=== PATIENT | male | born 1935 | race Caucasian/White ===

== ENCOUNTER 2021-08-08 14:48 | Inpatient (IN) | payer OTHER, MEDICARE, BC ==
[2021-08-08 16:00] LABS: #Eosinphils 0.1 thou/uL (0.0-0.7); #Lymphocytes 0.5 thou/uL (1.20-3.40); #Monocytes 0.6 thou/uL (0.11-0.59); #Neutrophils 7.1 thou/uL (1.40-6.50); %Eosinophils 0.7 % (0.0-10.0); %Lymphocytes 6.3 % (21.0-51.0); Hemoglobin 12.7 g/dL (14.0-18.0); Mean Corpuscular HGB CONC 34.2 g/dL (32.0-36.0); Mean Corpuscular Hemoglobin 40.9 pg (27.0-31.0); Mean Platelet Volume 6.4 fL (7.4-10.4); Platelet Count 501 thou/uL (130-400); RBC Distribution Width 13.4 % (11.5-14.5); White Blood Cell (WBC) Count 8.2 thou/uL (4.8-10.8)
[2021-08-08] MEDS ORDERED: Ondansetron PF 4 MG/2 ML Vial ONE (16:04)
[2021-08-08] MEDS ORDERED: Morphine 4 MG/ML VIAL ONE (16:04)
[2021-08-08 16:15] LABS: PTT 33.6 sec (22.9-36.1); Prothrombin Time 13.6 sec (12.0-14.7)
[2021-08-08 16:24] LABS: MDiff Complete? YES; Macrocytosis MODERATE=16-30 cells (100X) (0-5/hpf); Platelet Morphology Comment Appears Increased; Polychromasia SLIGHT = 2-3 cells (100X) (0-2/hpf); Stomatocytes SLIGHT = 2-5 cells (100X) (0-1/hpf)
[2021-08-08 16:30] LABS: ALT (SGPT) 16 U/L (8-55); AST (SGOT) 22 U/L (5-34); Albumin 4.2 g/dL (3.4-4.8); Alkaline Phosphatase 69 U/L (40-110); Anion Gap 16 mmol/L (10-20); BUN (Urea Nitrogen) 15 mg/dL (8.4-25.7); Calc. Creatinine Clearance 0 mL/min (70-130); Calcium 9.7 mg/dL (7.8-10.44); Carbon Dioxide 23 mmol/L (23-31); Chloride 96 mmol/L (98-107); Globulin 2.9 g/dL (2.4-3.5); Glucose 155 mg/dL (83-110); Potassium 4.1 mmol/L (3.5-5.1); Protein, Total 7.1 g/dL (5.8-8.1); Sodium 131 mmol/L (136-145)
[2021-08-08 18:41] VITALS: BMI 22.4
[2021-08-08] MEDS ORDERED: Cyclobenzaprine 10 MG TAB PO PRN (19:39)
[2021-08-08] MEDS ORDERED: traMADol HCl 50 MG TAB PO PRN (19:39)
[2021-08-08] MEDS ORDERED: Ondansetron PF 4 MG/2 ML Vial IVP PRN (19:44)
[2021-08-08] MEDS ORDERED: Promethazine HCl 25 MG/ML VIAL IM PRN (19:44)
[2021-08-08] MEDS ORDERED: Morphine 2 MG/ML VIAL SLOW IVP PRN (19:44)
[2021-08-08] MEDS ORDERED: hydrALAZINE 20 MG/ML VIAL SLOW IVP PRN (19:44)
[2021-08-08] MEDS ORDERED: Sodium Chloride 0.9% 500 ML IV SCH (19:45)
[2021-08-08] MEDS ORDERED: Ketorolac Tromethamine 30 MG/ML VIAL IVP SCH (19:45)
[2021-08-08] MEDS ORDERED: CEFAZOLIN 2 GM in Sodium Chloride 0.9% 100 ML IVPB SCH (19:45)
[2021-08-08] MEDS: Sodium Chloride 0.9% 1,000 ML IV SCH (20:49)
[2021-08-08] MEDS: Senokot S 8.6-50 MG TAB PO SCH (21:00)
[2021-08-08] MEDS ORDERED: Metoprolol Tartrate 25 MG TAB PO SCH (21:00)
[2021-08-08] MEDS ORDERED: Famotidine 20 MG TAB PO SCH (22:00)
[2021-08-08] MEDS: Acetaminophen 500 MG TAB PO SCH (23:32)
[2021-08-08] MEDS: traMADol HCl 50 MG TAB PO SCH (23:32)
[2021-08-08] MEDS: Ketorolac Tromethamine 30 MG/ML VIAL IVP SCH (23:33)
[2021-08-09 01:40] LABS: Bacteria/HPF None Seen HPF (None Seen); Bilirubin Negative (Negative); Blood, Urine Negative (Negative); Clarity Clear (Clear); Glucose, Urine (Dipstick) 50 mg/dL (Negative); Ketone, Urine Negative (Negative); Leukocyte Negative Leu/uL (Negative); Nitrite Negative (Negative); Protein, Urine (Dipstick) Negative (Neg-Trace); RBC/HPF 0-3 HPF (0-3); Specific Gravity, Urine 1.014 (1.002-1.036); Squamous Epithelial None Seen HPF (0-3); Urobilinogen Normal mg/dL (Less than 2); WBC/HPF 0-3 HPF (0-3); pH, Urine 7.5 (5.0-9.0)
[2021-08-09 01:41] LABS: Urine Culture Reflex No No
[2021-08-09] MEDS: Sodium Chloride 0.9% 1,000 ML IV SCH ×2 (05:41→20:27)
[2021-08-09] MEDS: Acetaminophen 500 MG TAB PO SCH ×3 (05:42→17:42)
[2021-08-09] MEDS: Levothyroxine Sodium 88 MCG TAB PO SCH (05:43)
[2021-08-09] MEDS: Ketorolac Tromethamine 30 MG/ML VIAL IVP SCH ×3 (05:43→17:40)
[2021-08-09] MEDS: traMADol HCl 50 MG TAB PO SCH ×3 (05:44→17:41)
[2021-08-09 06:56] LABS: #Eosinphils 0.1 thou/uL (0.0-0.7); #Lymphocytes 0.4 thou/uL (1.20-3.40); #Monocytes 0.3 thou/uL (0.11-0.59); #Neutrophils 3.7 thou/uL (1.40-6.50); %Basophils 0.1 % (0.0-1.0); %Eosinophils 2.3 % (0.0-10.0); %Lymphocytes 8.3 % (21.0-51.0); %Neutrophils 83.3 % (42.0-75.0); Hemoglobin 11.4 g/dL (14.0-18.0); MDiff Complete? YES; Mean Corpuscular HGB CONC 34.9 g/dL (32.0-36.0); Mean Corpuscular Hemoglobin 41.9 pg (27.0-31.0); Platelet Count 309 thou/uL (130-400); RBC Distribution Width 13.2 % (11.5-14.5); Red Blood Cell (RBC) Count 2.72 mill/uL (4.70-6.10); White Blood Cell (WBC) Count 4.4 thou/uL (4.8-10.8)
[2021-08-09 06:57] LABS: Macrocytosis MODERATE=16-30 cells (100X) (0-5/hpf); Platelet Morphology Comment Appears Adequate
[2021-08-09 06:58] LABS: INR-International Normal Ratio 1.1; PTT 36.5 sec (22.9-36.1); Phosphorus 3.2 mg/dL (2.3-4.7); Prothrombin Time 14.2 sec (12.0-14.7)
[2021-08-09 07:01] LABS: Anion Gap 9 mmol/L (10-20); BUN (Urea Nitrogen) 13 mg/dL (8.4-25.7); Calc. Creatinine Clearance 53 mL/min (70-130); Calcium 8.6 mg/dL (7.8-10.44); Carbon Dioxide 26 mmol/L (23-31); Chloride 96 mmol/L (98-107); Glucose 107 mg/dL (83-110); Magnesium 1.7 mg/dL (1.6-2.6); Potassium 4.4 mmol/L (3.5-5.1); Sodium 127 mmol/L (136-145)
[2021-08-09] MEDS: Metoprolol Tartrate 25 MG TAB PO SCH ×2 (08:27→20:26)
[2021-08-09] MEDS: Famotidine 20 MG TAB PO SCH ×2 (08:27→20:26)
[2021-08-09] MEDS: Polyethylene Glycol 3350 17 GM Packet PO SCH (08:28)
[2021-08-09] MEDS: Senokot S 8.6-50 MG TAB PO SCH ×2 (08:28→20:27)
[2021-08-09] MEDS ORDERED: fentaNYL Citrate/PF 100 MCG/2 ML SYRINGE ONE (11:07)
[2021-08-09] MEDS ORDERED: Phenylephrine 10 MG/ML VIAL ONE (11:07)
[2021-08-09] MEDS ORDERED: Sodium Chloride 0.9% 100 ML ONE (11:16)
[2021-08-09] MEDS ORDERED: Tranexamic Acid 1,000 MG/10 ML VIAL ONE (11:16)
[2021-08-09] MEDS ORDERED: Lidocaine 1% PF 5 ML VIAL ONE (11:21)
[2021-08-09] MEDS ORDERED: PROPOFOL 200 MG/20 ML VIAL ONE (11:21)
[2021-08-09] MEDS ORDERED: Rocuronium Bromide 10 MG/ML (10ML VIAL) ONE (11:21)
[2021-08-09] MEDS ORDERED: SUGAMMADEX SODIUM 200 MG/2 ML VIAL ONE (12:54)
[2021-08-09] MEDS ORDERED: Promethazine HCl 25 MG/ML VIAL IVPB PRN ×2 (13:06→13:23)
[2021-08-09] MEDS ORDERED: Promethazine HCl 25 MG/ML VIAL IM PRN ×2 (13:06→13:23)
[2021-08-09] MEDS ORDERED: Ondansetron HCl/PF 4 MG/2 ML Vial IVP PRN ×2 (13:06→13:23)
[2021-08-09] MEDS ORDERED: CEFAZOLIN 2 GM in Sodium Chloride 0.9% 100 ML IVPB SCH (14:00)
[2021-08-09] MEDS ORDERED: Fentanyl 100 MCG/2 ML VIAL ONE (14:05)
[2021-08-09] MEDS: CEFAZOLIN 2 GM in Sodium Chloride 0.9% 100 ML IVPB SCH (17:42)
[2021-08-09] MEDS: Atorvastatin Calcium 40 MG TAB PO SCH (20:25)
[2021-08-10] MEDS: Acetaminophen 500 MG TAB PO SCH ×4 (01:08→17:46)
[2021-08-10] MEDS: Ketorolac Tromethamine 30 MG/ML VIAL IVP SCH (01:09)
[2021-08-10] MEDS: CEFAZOLIN 2 GM in Sodium Chloride 0.9% 100 ML IVPB SCH (01:10)
[2021-08-10] MEDS: traMADol HCl 50 MG TAB PO SCH ×4 (01:10→17:47)
[2021-08-10] MEDS: Sodium Chloride 0.9% 1,000 ML IV SCH (03:58)
[2021-08-10] MEDS: Levothyroxine Sodium 88 MCG TAB PO SCH (05:55)
[2021-08-10 06:28] LABS: Anion Gap 11 mmol/L (10-20); BUN (Urea Nitrogen) 14 mg/dL (8.4-25.7); Calc. Creatinine Clearance 55 mL/min (70-130); Calcium 8.2 mg/dL (7.8-10.44); Carbon Dioxide 23 mmol/L (23-31); Chloride 98 mmol/L (98-107); Glucose 109 mg/dL (83-110); Magnesium 1.6 mg/dL (1.6-2.6); Phosphorus 3.3 mg/dL (2.3-4.7); Potassium 4.2 mmol/L (3.5-5.1); Sodium 128 mmol/L (136-145)
[2021-08-10 06:31] LABS: #Eosinphils 0.1 thou/uL (0.0-0.7); #Lymphocytes 0.3 thou/uL (1.20-3.40); #Monocytes 0.3 thou/uL (0.11-0.59); #Neutrophils 3.4 thou/uL (1.40-6.50); %Basophils 0.3 % (0.0-1.0); %Eosinophils 2.4 % (0.0-10.0); %Lymphocytes 7.5 % (21.0-51.0); %Monocytes 7.2 % (0.0-10.0); %Neutrophils 82.7 % (42.0-75.0); Hemoglobin 10.4 g/dL (14.0-18.0); Mean Corpuscular HGB CONC 34.5 g/dL (32.0-36.0); Mean Corpuscular Hemoglobin 43.2 pg (27.0-31.0); Mean Platelet Volume 6.3 fL (7.4-10.4); Platelet Count 277 thou/uL (130-400); RBC Distribution Width 13.4 % (11.5-14.5); Red Blood Cell (RBC) Count 2.41 mill/uL (4.70-6.10); White Blood Cell (WBC) Count 4.2 thou/uL (4.8-10.8)
[2021-08-10] MEDS ORDERED: Ibuprofen 200 MG TAB PO PRN (07:47)
[2021-08-10] MEDS ORDERED: Amlodipine 10 MG TAB PO SCH (09:00)
[2021-08-10] MEDS: Famotidine 20 MG TAB PO SCH ×2 (09:18→21:33)
[2021-08-10] MEDS: Aspirin 81 mg Enteric Coated Tablet PO SCH ×2 (09:18→21:34)
[2021-08-10] MEDS: Polyethylene Glycol 3350 17 GM Packet PO SCH (09:18)
[2021-08-10] MEDS: Hydroxyurea 500 MG CAP PO SCH (09:18)
[2021-08-10] MEDS: Allopurinol 100 MG TAB PO SCH (09:20)
[2021-08-10] MEDS: Senokot S 8.6-50 MG TAB PO SCH ×2 (09:20→21:34)
[2021-08-10] MEDS: Metoprolol Tartrate 25 MG TAB PO SCH ×2 (09:21→21:34)
[2021-08-10] MEDS: Amlodipine 5 MG TAB PO SCH (09:21)
[2021-08-10] MEDS: Atorvastatin Calcium 40 MG TAB PO SCH (21:34)
[2021-08-11] MEDS: traMADol HCl 50 MG TAB PO SCH ×4 (00:15→18:52)
[2021-08-11] MEDS: Acetaminophen 500 MG TAB PO SCH ×4 (00:16→17:27)
[2021-08-11] MEDS: Levothyroxine Sodium 88 MCG TAB PO SCH (05:52)
[2021-08-11 07:13] LABS: #Eosinphils 0.2 thou/uL (0.0-0.7); #Lymphocytes 0.4 thou/uL (1.20-3.40); #Monocytes 0.4 thou/uL (0.11-0.59); #Neutrophils 3.1 thou/uL (1.40-6.50); %Basophils 0.1 % (0.0-1.0); %Eosinophils 4.4 % (0.0-10.0); %Lymphocytes 10.1 % (21.0-51.0); %Monocytes 8.7 % (0.0-10.0); %Neutrophils 76.7 % (42.0-75.0); Hemoglobin 9.8 g/dL (14.0-18.0); Mean Corpuscular HGB CONC 33.6 g/dL (32.0-36.0); Mean Corpuscular Hemoglobin 41.9 pg (27.0-31.0); Mean Platelet Volume 6.7 fL (7.4-10.4); Platelet Count 302 thou/uL (130-400); RBC Distribution Width 13.4 % (11.5-14.5); Red Blood Cell (RBC) Count 2.35 mill/uL (4.70-6.10); White Blood Cell (WBC) Count 4.1 thou/uL (4.8-10.8)
[2021-08-11 07:46] LABS: Anion Gap 11 mmol/L (10-20); BUN (Urea Nitrogen) 12 mg/dL (8.4-25.7); Calc. Creatinine Clearance 63 mL/min (70-130); Calcium 8.5 mg/dL (7.8-10.44); Carbon Dioxide 24 mmol/L (23-31); Chloride 95 mmol/L (98-107); Glucose 100 mg/dL (83-110); Magnesium 1.8 mg/dL (1.6-2.6); Phosphorus 2.4 mg/dL (2.3-4.7); Potassium 4.4 mmol/L (3.5-5.1); Sodium 126 mmol/L (136-145)
[2021-08-11] MEDS ORDERED: Sodium Phosphate 15 MMOL in Sodium Chloride 0.9% 250 ML 250 ML IVPB SCH (09:00)
[2021-08-11] MEDS ORDERED: Magnesium 2 GM/50 ML(in water) 2 GM in Premix Bag 1 BAG IVPB SCH (09:00)
[2021-08-11] MEDS ORDERED: Sodium Chloride 1 GM TAB PO SCH (09:00)
[2021-08-11] MEDS: Metoprolol Tartrate 25 MG TAB PO SCH (09:05)
[2021-08-11] MEDS: Aspirin 81 mg Enteric Coated Tablet PO SCH (09:05)
[2021-08-11] MEDS: Polyethylene Glycol 3350 17 GM Packet PO SCH (09:06)
[2021-08-11] MEDS: Allopurinol 100 MG TAB PO SCH (09:06)
[2021-08-11] MEDS: Senokot S 8.6-50 MG TAB PO SCH (09:06)
[2021-08-11] MEDS: Amlodipine 5 MG TAB PO SCH (09:06)
[2021-08-11] MEDS: Hydroxyurea 500 MG CAP PO SCH (09:06)
[2021-08-11] MEDS: Famotidine 20 MG TAB PO SCH (09:06)
[2021-08-11 16:50] VITALS: BP 161/72; TEMP 97.4
== END 2021-08-11 18:55 | DRG 522 ==
LOC: ERS 14:48 → SURG A 16:15
PROVIDERS: ADMIT Surgery; ATTEND Surgery
PROC: 0SRS019 Replacement of Left Hip Joint, Femoral Surface with Metal Synthetic Substitute, Cemented, Open Approach (ICD-10-PCS; principal; 2021-08-09)
DX: S72.012A Unspecified intracapsular fracture of left femur, initial encounter for closed fracture (principal); E87.1 Hypo-osmolality and hyponatremia; Z20.822 Contact with and (suspected) exposure to COVID-19; W18.30XA Fall on same level, unspecified, initial encounter; I10 Essential (primary) hypertension; E78.5 Hyperlipidemia, unspecified; J44.9 Chronic obstructive pulmonary disease, unspecified; I25.10 Atherosclerotic heart disease of native coronary artery without angina pectoris; E03.9 Hypothyroidism, unspecified; Z79.82 Long term (current) use of aspirin; Y93.67 Activity, basketball; Y92.39 Other specified sports and athletic area as the place of occurrence of the external cause; Z95.5 Presence of coronary angioplasty implant and graft; Z79.899 Other long term (current) drug therapy; Z79.890 Hormone replacement therapy; Z87.891 Personal history of nicotine dependence
CPT/HCPCS: 36415; 71045; 72170; 80048; 80053; 81001; 83735; 84100; 85025; 85610; 85730; 86850; 86900; 86901; 93005; 94640; 96374; 96375; C1713; C1889; J1885; J2270; J2370; J2405; J2704; J3010; J3475; J3490; J7030; J7050; J7620; U0003; U0005

== ENCOUNTER 2022-02-15 11:32 | Inpatient (IN) | payer MEDICARE, BC ==
[~2022-02-15 11:32] MED LIST: Iopamidol-370 76% 500 ML 1 ML ONE
[2022-02-15 12:46] LABS: #Lymphocytes 0.3 thou/uL (1.20-3.40); #Monocytes 0.6 thou/uL (0.11-0.59); #Neutrophils 6.1 thou/uL (1.40-6.50); %Eosinophils 0.4 % (0.0-10.0); %Lymphocytes 4.9 % (21.0-51.0); %Neutrophils 86.7 % (42.0-75.0); Hemoglobin 12.1 g/dL (14.0-18.0); Mean Corpuscular HGB CONC 35.6 g/dL (32.0-36.0); Mean Corpuscular Hemoglobin 40.3 pg (27.0-31.0); Mean Platelet Volume 6.9 fL (7.4-10.4); Platelet Count 521 10x3/uL (130-400); RBC Distribution Width 13.1 % (11.5-14.5); Red Blood Cell (RBC) Count 2.99 mill/uL (4.70-6.10)
[2022-02-15 13:07] LABS: ALT (SGPT) 15 U/L (8-55); AST (SGOT) 20 U/L (5-34); Albumin 3.9 g/dL (3.4-4.8); Alkaline Phosphatase 87 U/L (40-110); Anion Gap 13 mmol/L (10-20); BUN (Urea Nitrogen) 8 mg/dL (8.4-25.7); Bilirubin, Total 1.1 mg/dL (0.2-1.2); Calc. Creatinine Clearance 0 mL/min (70-130); Carbon Dioxide 24 mmol/L (23-31); Chloride 89 mmol/L (98-107); Estimated GFR 78; Globulin 2.7 g/dL (2.4-3.5); Glucose 131 mg/dL (83-110); Lipase 21 U/L (8-78); Magnesium 1.9 mg/dL (1.6-2.6); Potassium 4.2 mmol/L (3.5-5.1); Protein, Total 6.6 g/dL (5.8-8.1); Sodium 122 mmol/L (136-145)
[2022-02-15 13:25] LABS: MDiff Complete? YES; Macrocytosis SLIGHT = 6-15 cells (100X) (0-5/hpf); Platelet Morphology Comment Appears Increased; Polychromasia SLIGHT = 2-3 cells (100X) (0-2/hpf)
[2022-02-15 14:08] LABS: SARS-CoV-2 NAA Rapid Test Not Detected (NotDetected)
[2022-02-15 14:43] LABS: Free Thyroxine Index 2.43 (1.4-3.1); T4 9.4 ug/dL (4.87-11.72)
[2022-02-15 14:45] LABS: Bilirubin Negative (Negative); Blood, Urine Negative (Negative); Clarity Clear (Clear); Glucose, Urine (Dipstick) Normal (Negative); Ketone, Urine Negative (Negative); Leukocyte Negative Leu/uL (Negative); Nitrite Negative (Negative); Protein, Urine (Dipstick) Negative (Neg-Trace); Specific Gravity, Urine 1.022 (1.002-1.036); Urobilinogen Normal mg/dL (Less than 2); pH, Urine 7.5 (5.0-9.0)
[2022-02-15] MEDS ORDERED: Acetaminophen 325 MG TAB PO PRN (15:00)
[2022-02-15] MEDS ORDERED: Ondansetron ODT 4 MG TAB PO PRN (15:00)
[2022-02-15 16:43] LABS: Anion Gap 11 mmol/L (10-20); BUN (Urea Nitrogen) 8 mg/dL (8.4-25.7); Calc. Creatinine Clearance 0 mL/min (70-130); Calcium 8.4 mg/dL (7.8-10.44); Carbon Dioxide 23 mmol/L (23-31); Chloride 90 mmol/L (98-107); Estimated GFR 85; Glucose 132 mg/dL (83-110); Potassium 4.2 mmol/L (3.5-5.1); Sodium 120 mmol/L (136-145); Uric Acid 2.1 mg/dL (3.5-7.2)
[2022-02-15] MEDS ORDERED: Ibuprofen 200 MG TAB PO PRN (18:28)
[2022-02-15] MEDS ORDERED: Cyclobenzaprine 10 MG TAB PO PRN (18:28)
[2022-02-15 18:53] LABS: Creatinine, Urine 34.57 mg/dL (63-166)
[2022-02-15] MEDS: Sodium Chloride 256 MEQ in Sterile Water Injection 936 ML IV SCH (20:16)
[2022-02-15] MEDS: Atorvastatin Calcium 40 MG TAB PO SCH (20:17)
[2022-02-15] MEDS: Famotidine 20 MG TAB PO SCH (20:17)
[2022-02-15] MEDS: Senokot S 8.6-50 MG TAB PO SCH (20:18)
[2022-02-15] MEDS: Hydroxyurea 500 MG CAP PO SCH (20:18)
[2022-02-15] MEDS: Sodium Chloride 1 GM TAB PO SCH (20:18)
[2022-02-15] MEDS: busPIRone HCl 10 MG TAB PO SCH (20:19)
[2022-02-15] MEDS ORDERED: traZODone HCl 50 MG TAB PO SCH (21:00)
[2022-02-15] MEDS ORDERED: Metoprolol Tartrate 25 MG TAB PO SCH (21:00)
[2022-02-15] MEDS ORDERED: Non-Formulary Item 1 EACH (Albuterol Sulfate Hfa (Or) 200 PUFF Inh) INH SCH (21:00)
[2022-02-16 01:13] LABS: Anion Gap 11 mmol/L (10-20); BUN (Urea Nitrogen) 8 mg/dL (8.4-25.7); Calc. Creatinine Clearance 64 mL/min (70-130); Calcium 8.4 mg/dL (7.8-10.44); Carbon Dioxide 22 mmol/L (23-31); Chloride 94 mmol/L (98-107); Estimated GFR 86; Glucose 109 mg/dL (83-110); Potassium 3.8 mmol/L (3.5-5.1); Sodium 123 mmol/L (136-145)
[2022-02-16] MEDS: Acetaminophen 500 MG TAB PO SCH ×5 (02:43→23:42)
[2022-02-16] MEDS: Levothyroxine Sodium 88 MCG TAB PO SCH (05:03)
[2022-02-16] MEDS: guaiFENesin 200 MG TAB PO PRN ×3 (05:03→20:02)
[2022-02-16 05:59] LABS: #Lymphocytes 0.4 thou/uL (1.20-3.40); #Monocytes 0.5 thou/uL (0.11-0.59); #Neutrophils 3.5 thou/uL (1.40-6.50); %Basophils 0.2 % (0.0-1.0); %Eosinophils 1.1 % (0.0-10.0); %Lymphocytes 9.5 % (21.0-51.0); %Monocytes 10.6 % (0.0-10.0); %Neutrophils 78.7 % (42.0-75.0); Hemoglobin 10.6 g/dL (14.0-18.0); Mean Corpuscular HGB CONC 34.1 g/dL (32.0-36.0); Mean Corpuscular Hemoglobin 39.3 pg (27.0-31.0); Mean Platelet Volume 6.8 fL (7.4-10.4); Platelet Count 494 10x3/uL (130-400); RBC Distribution Width 12.9 % (11.5-14.5); Red Blood Cell (RBC) Count 2.71 mill/uL (4.70-6.10); White Blood Cell (WBC) Count 4.4 10x3/uL (4.8-10.8)
[2022-02-16 06:30] LABS: ALT (SGPT) 12 U/L (8-55); AST (SGOT) 16 U/L (5-34); Albumin 3.1 g/dL (3.4-4.8); Alkaline Phosphatase 68 U/L (40-110); Anion Gap 10 mmol/L (10-20); BUN (Urea Nitrogen) 8 mg/dL (8.4-25.7); Bilirubin, Total 0.9 mg/dL (0.2-1.2); Calc. Creatinine Clearance 61 mL/min (70-130); Calcium 8.4 mg/dL (7.8-10.44); Carbon Dioxide 22 mmol/L (23-31); Chloride 96 mmol/L (98-107); Estimated GFR 85; Globulin 2.2 g/dL (2.4-3.5); Glucose 113 mg/dL (83-110); Protein, Total 5.3 g/dL (5.8-8.1); Sodium 124 mmol/L (136-145)
[2022-02-16] MEDS: busPIRone HCl 10 MG TAB PO SCH ×2 (08:55→20:02)
[2022-02-16] MEDS: Enoxaparin Sodium 40 MG/0.4 ML SYRINGE SC SCH (08:55)
[2022-02-16] MEDS: Aspirin Chewable 81 MG TAB PO SCH (08:56)
[2022-02-16] MEDS: Senokot S 8.6-50 MG TAB PO SCH ×2 (08:56→20:03)
[2022-02-16] MEDS: Allopurinol 100 MG TAB PO SCH (08:56)
[2022-02-16] MEDS: Sodium Chloride 1 GM TAB PO SCH ×3 (08:57→20:03)
[2022-02-16] MEDS: Hydroxyurea 500 MG CAP PO SCH ×2 (08:57→20:03)
[2022-02-16] MEDS: Famotidine 20 MG TAB PO SCH ×2 (08:57→20:04)
[2022-02-16] MEDS: Amlodipine 5 MG TAB PO SCH (08:57)
[2022-02-16] MEDS: Polyethylene Glycol 3350 17 GM Packet PO SCH (08:58)
[2022-02-16] MEDS ORDERED: Amlodipine 10 MG TAB PO SCH (09:00)
[2022-02-16 11:44] VITALS: BMI 20.5
[2022-02-16 13:47] LABS: Anion Gap 8 mmol/L (10-20); BUN (Urea Nitrogen) 8 mg/dL (8.4-25.7); Calc. Creatinine Clearance 55 mL/min (70-130); Calcium 8.4 mg/dL (7.8-10.44); Carbon Dioxide 25 mmol/L (23-31); Chloride 96 mmol/L (98-107); Estimated GFR 76; Glucose 114 mg/dL (83-110); Potassium 4.4 mmol/L (3.5-5.1); Sodium 125 mmol/L (136-145)
[2022-02-16] MEDS: Sodium Chloride 256 MEQ in Sterile Water Injection 936 ML IV SCH (14:24)
[2022-02-16] MEDS ORDERED: predniSONE 20 MG TAB PO SCH (18:30)
[2022-02-16 18:53] LABS: Anion Gap 10 mmol/L (10-20); BUN (Urea Nitrogen) 9 mg/dL (8.4-25.7); Calc. Creatinine Clearance 59 mL/min (70-130); Calcium 8.1 mg/dL (7.8-10.44); Carbon Dioxide 23 mmol/L (23-31); Chloride 96 mmol/L (98-107); Estimated GFR 84; Glucose 112 mg/dL (83-110); Sodium 125 mmol/L (136-145)
[2022-02-16] MEDS: Atorvastatin Calcium 40 MG TAB PO SCH (20:04)
[2022-02-16] MEDS: traZODone HCl 50 MG TAB PO SCH ×2 (22:35→23:44)
[2022-02-17 05:53] LABS: #Lymphocytes 0.4 thou/uL (1.20-3.40); #Monocytes 0.2 thou/uL (0.11-0.59); #Neutrophils 3.8 thou/uL (1.40-6.50); %Basophils 0.2 % (0.0-1.0); %Eosinophils 0.2 % (0.0-10.0); %Monocytes 5.1 % (0.0-10.0); %Neutrophils 86.5 % (42.0-75.0); Hemoglobin 10.7 g/dL (14.0-18.0); Mean Corpuscular HGB CONC 32.4 g/dL (32.0-36.0); Mean Corpuscular Hemoglobin 37.6 pg (27.0-31.0); Mean Platelet Volume 6.9 fL (7.4-10.4); Platelet Count 576 10x3/uL (130-400); Red Blood Cell (RBC) Count 2.84 mill/uL (4.70-6.10); White Blood Cell (WBC) Count 4.4 10x3/uL (4.8-10.8)
[2022-02-17 06:14] LABS: ALT (SGPT) 13 U/L (8-55); AST (SGOT) 16 U/L (5-34); Albumin 3.1 g/dL (3.4-4.8); Alkaline Phosphatase 70 U/L (40-110); Anion Gap 12 mmol/L (10-20); BUN (Urea Nitrogen) 10 mg/dL (8.4-25.7); Bilirubin, Total 0.5 mg/dL (0.2-1.2); Calc. Creatinine Clearance 56 mL/min (70-130); Calcium 8.3 mg/dL (7.8-10.44); Carbon Dioxide 20 mmol/L (23-31); Chloride 98 mmol/L (98-107); Estimated GFR 78; Globulin 2.3 g/dL (2.4-3.5); Glucose 163 mg/dL (83-110); Potassium 4.4 mmol/L (3.5-5.1); Protein, Total 5.4 g/dL (5.8-8.1)
[2022-02-17] MEDS: Levothyroxine Sodium 88 MCG TAB PO SCH (06:17)
[2022-02-17] MEDS: Acetaminophen 500 MG TAB PO SCH ×4 (06:17→23:01)
[2022-02-17 06:24] LABS: Sodium 126 mmol/L (136-145)
[2022-02-17] MEDS: Polyethylene Glycol 3350 17 GM Packet PO SCH (08:01)
[2022-02-17] MEDS: Enoxaparin Sodium 40 MG/0.4 ML SYRINGE SC SCH (08:01)
[2022-02-17] MEDS: Amlodipine 5 MG TAB PO SCH (08:02)
[2022-02-17] MEDS: busPIRone HCl 10 MG TAB PO SCH ×2 (08:02→21:18)
[2022-02-17] MEDS: Aspirin Chewable 81 MG TAB PO SCH (08:02)
[2022-02-17] MEDS: Hydroxyurea 500 MG CAP PO SCH ×2 (08:02→21:19)
[2022-02-17] MEDS: Famotidine 20 MG TAB PO SCH ×2 (08:03→21:19)
[2022-02-17] MEDS: predniSONE 20 MG TAB PO SCH (08:03)
[2022-02-17] MEDS: Sodium Chloride 1 GM TAB PO SCH ×3 (08:03→21:19)
[2022-02-17] MEDS: Azithromycin 250 MG TAB PO SCH (08:03)
[2022-02-17] MEDS: Allopurinol 100 MG TAB PO SCH (08:03)
[2022-02-17] MEDS: Senokot S 8.6-50 MG TAB PO SCH ×2 (08:03→21:19)
[2022-02-17] MEDS: Sodium Chloride 256 MEQ in Sterile Water Injection 936 ML IV SCH (10:34)
[2022-02-17] MEDS ORDERED: Amlodipine 5 MG TAB PO SCH (15:00)
[2022-02-17 16:34] LABS: Anion Gap 11 mmol/L (10-20); BUN (Urea Nitrogen) 11 mg/dL (8.4-25.7); Calc. Creatinine Clearance 53 mL/min (70-130); Calcium 8.4 mg/dL (7.8-10.44); Carbon Dioxide 22 mmol/L (23-31); Chloride 100 mmol/L (98-107); Estimated GFR 81; Glucose 172 mg/dL (83-110); Potassium 4.3 mmol/L (3.5-5.1); Sodium 129 mmol/L (136-145)
[2022-02-17] MEDS: Atorvastatin Calcium 40 MG TAB PO SCH (21:18)
[2022-02-17] MEDS: traZODone HCl 50 MG TAB PO SCH (21:18)
[2022-02-18] MEDS: Acetaminophen 500 MG TAB PO SCH ×4 (05:06→23:10)
[2022-02-18] MEDS: Sodium Chloride 256 MEQ in Sterile Water Injection 936 ML IV SCH ×2 (05:06→21:51)
[2022-02-18] MEDS: Levothyroxine Sodium 88 MCG TAB PO SCH (05:06)
[2022-02-18 05:23] LABS: #Lymphocytes 0.7 thou/uL (1.20-3.40); #Monocytes 0.5 thou/uL (0.11-0.59); #Neutrophils 6.5 thou/uL (1.40-6.50); %Basophils 0.1 % (0.0-1.0); %Eosinophils 0.4 % (0.0-10.0); %Lymphocytes 8.6 % (21.0-51.0); %Monocytes 6.4 % (0.0-10.0); %Neutrophils 84.4 % (42.0-75.0); Hemoglobin 11.2 g/dL (14.0-18.0); Mean Corpuscular HGB CONC 34.1 g/dL (32.0-36.0); Mean Corpuscular Hemoglobin 39.4 pg (27.0-31.0); Mean Platelet Volume 6.5 fL (7.4-10.4); Platelet Count 715 10x3/uL (130-400); RBC Distribution Width 13.1 % (11.5-14.5); Red Blood Cell (RBC) Count 2.85 mill/uL (4.70-6.10); White Blood Cell (WBC) Count 7.7 10x3/uL (4.8-10.8)
[2022-02-18 05:39] LABS: ALT (SGPT) 15 U/L (8-55); AST (SGOT) 17 U/L (5-34); Albumin 3.3 g/dL (3.4-4.8); Alkaline Phosphatase 68 U/L (40-110); Anion Gap 11 mmol/L (10-20); BUN (Urea Nitrogen) 10 mg/dL (8.4-25.7); Bilirubin, Total 0.5 mg/dL (0.2-1.2); Calc. Creatinine Clearance 56 mL/min (70-130); Calcium 8.5 mg/dL (7.8-10.44); Carbon Dioxide 21 mmol/L (23-31); Chloride 103 mmol/L (98-107); Estimated GFR 85; Globulin 2.3 g/dL (2.4-3.5); Glucose 108 mg/dL (83-110); Potassium 4.1 mmol/L (3.5-5.1); Protein, Total 5.6 g/dL (5.8-8.1); Sodium 131 mmol/L (136-145)
[2022-02-18] MEDS: predniSONE 20 MG TAB PO SCH (08:48)
[2022-02-18] MEDS: Amlodipine 10 MG TAB PO SCH (08:51)
[2022-02-18] MEDS: busPIRone HCl 10 MG TAB PO SCH ×2 (08:52→20:50)
[2022-02-18] MEDS: Aspirin Chewable 81 MG TAB PO SCH (08:52)
[2022-02-18] MEDS: Enoxaparin Sodium 40 MG/0.4 ML SYRINGE SC SCH (08:52)
[2022-02-18] MEDS: Azithromycin 250 MG TAB PO SCH (08:52)
[2022-02-18] MEDS: Hydroxyurea 500 MG CAP PO SCH ×2 (08:53→20:50)
[2022-02-18] MEDS: Famotidine 20 MG TAB PO SCH ×2 (08:53→20:50)
[2022-02-18] MEDS: Senokot S 8.6-50 MG TAB PO SCH ×2 (08:54→20:50)
[2022-02-18] MEDS: Polyethylene Glycol 3350 17 GM Packet PO SCH (08:54)
[2022-02-18] MEDS: Sodium Chloride 1 GM TAB PO SCH ×3 (08:54→20:51)
[2022-02-18] MEDS: Allopurinol 100 MG TAB PO SCH (08:56)
[2022-02-18] MEDS ORDERED: Cyanocobalamin (Vitamin B-12) 1,000 MCG TAB PO SCH (10:00)
[2022-02-18] MEDS ORDERED: Folic Acid 1 MG TAB PO SCH (10:15)
[2022-02-18] MEDS: traZODone HCl 50 MG TAB PO SCH (20:50)
[2022-02-18] MEDS: Atorvastatin Calcium 40 MG TAB PO SCH (20:50)
[2022-02-19 06:06] LABS: #Eosinphils 0.1 thou/uL (0.0-0.7); #Lymphocytes 0.7 thou/uL (1.20-3.40); #Monocytes 0.4 thou/uL (0.11-0.59); #Neutrophils 4.8 thou/uL (1.40-6.50); %Basophils 0.4 % (0.0-1.0); %Eosinophils 1.7 % (0.0-10.0); %Lymphocytes 11.8 % (21.0-51.0); %Neutrophils 79.1 % (42.0-75.0); Mean Corpuscular HGB CONC 33.2 g/dL (32.0-36.0); Mean Corpuscular Hemoglobin 38.8 pg (27.0-31.0); Mean Platelet Volume 6.4 fL (7.4-10.4); Platelet Count 779 10x3/uL (130-400); RBC Distribution Width 13.3 % (11.5-14.5); Red Blood Cell (RBC) Count 3.08 mill/uL (4.70-6.10); White Blood Cell (WBC) Count 6.1 10x3/uL (4.8-10.8)
[2022-02-19] MEDS: Levothyroxine Sodium 88 MCG TAB PO SCH (06:16)
[2022-02-19] MEDS: Acetaminophen 500 MG TAB PO SCH ×2 (06:16→12:30)
[2022-02-19 06:21] LABS: ALT (SGPT) 19 U/L (8-55); AST (SGOT) 24 U/L (5-34); Albumin 3.4 g/dL (3.4-4.8); Alkaline Phosphatase 71 U/L (40-110); Anion Gap 12 mmol/L (10-20); BUN (Urea Nitrogen) 10 mg/dL (8.4-25.7); Bilirubin, Total 0.6 mg/dL (0.2-1.2); Calc. Creatinine Clearance 52 mL/min (70-130); Calcium 8.5 mg/dL (7.8-10.44); Carbon Dioxide 24 mmol/L (23-31); Chloride 99 mmol/L (98-107); Estimated GFR 79; Globulin 2.4 g/dL (2.4-3.5); Glucose 86 mg/dL (83-110); Potassium 3.9 mmol/L (3.5-5.1); Protein, Total 5.8 g/dL (5.8-8.1); Sodium 131 mmol/L (136-145)
[2022-02-19 08:34] VITALS: BP 130/71; TEMP 97.6
[2022-02-19] MEDS: Azithromycin 250 MG TAB PO SCH (08:50)
[2022-02-19] MEDS: Hydroxyurea 500 MG CAP PO SCH (08:50)
[2022-02-19] MEDS: Famotidine 20 MG TAB PO SCH (08:50)
[2022-02-19] MEDS: Senokot S 8.6-50 MG TAB PO SCH (08:51)
[2022-02-19] MEDS: Aspirin Chewable 81 MG TAB PO SCH (08:51)
[2022-02-19] MEDS: Sodium Chloride 1 GM TAB PO SCH (08:51)
[2022-02-19] MEDS: Amlodipine 10 MG TAB PO SCH (08:52)
[2022-02-19] MEDS: Polyethylene Glycol 3350 17 GM Packet PO SCH (08:52)
[2022-02-19] MEDS: Enoxaparin Sodium 40 MG/0.4 ML SYRINGE SC SCH (08:52)
[2022-02-19] MEDS: predniSONE 20 MG TAB PO SCH (08:54)
[2022-02-19] MEDS: busPIRone HCl 10 MG TAB PO SCH (08:55)
[2022-02-19] MEDS: Allopurinol 100 MG TAB PO SCH (08:55)
[2022-02-19] MEDS ORDERED: Sodium Chloride 256 MEQ in Sterile Water Injection 936 ML IV SCH (08:58)
[2022-02-19] MEDS ORDERED: Cyanocobalamin (Vitamin B-12) 1,000 MCG TAB PO SCH (09:00)
[2022-02-19] MEDS ORDERED: Folic Acid 1 MG TAB PO SCH (09:00)
== END 2022-02-19 14:45 | disposition home or self-care (01) | DRG 644 ==
LOC: ERS 11:32 → MSONC 16:04
PROVIDERS: ADMIT Student in an Organized Health Care Education/Training Program; ATTEND Family Medicine
DX: E22.2 Syndrome of inappropriate secretion of antidiuretic hormone (principal); J44.1 Chronic obstructive pulmonary disease with (acute) exacerbation; J44.0 Chronic obstructive pulmonary disease with (acute) lower respiratory infection; C95.90 Leukemia, unspecified not having achieved remission; Z20.822 Contact with and (suspected) exposure to COVID-19; F41.9 Anxiety disorder, unspecified; D53.9 Nutritional anemia, unspecified; E03.9 Hypothyroidism, unspecified; D69.6 Thrombocytopenia, unspecified; I10 Essential (primary) hypertension; I25.10 Atherosclerotic heart disease of native coronary artery without angina pectoris; Z96.642 Presence of left artificial hip joint; J20.8 Acute bronchitis due to other specified organisms; M16.11 Unilateral primary osteoarthritis, right hip; Z88.8 Allergy status to other drugs, medicaments and biological substances; Z79.890 Hormone replacement therapy; Z79.82 Long term (current) use of aspirin; Z95.5 Presence of coronary angioplasty implant and graft; Z83.3 Family history of diabetes mellitus; Z79.899 Other long term (current) drug therapy
CPT/HCPCS: 36415; 70450; 71045; 74177; 80053; 81003; 82533; 82570; 83690; 83735; 83930; 83935; 84145; 84300; 84436; 84443; 84479; 84484; 84550; 85025; 87070; 87077; 87205; 93005; 94640; 96360; A4217; J1650; J7512; J7620; Q9967

== ENCOUNTER 2022-03-01 14:02 | Emergency (ER) | payer MEDICARE, BC ==
[2022-03-01 14:57] LABS: #Eosinphils 0.1 thou/uL (0.0-0.7); #Lymphocytes 0.6 thou/uL (1.20-3.40); #Monocytes 0.3 thou/uL (0.11-0.59); %Basophils 0.8 % (0.0-1.0); %Eosinophils 1.5 % (0.0-10.0); %Lymphocytes 12.1 % (21.0-51.0); %Monocytes 5.6 % (0.0-10.0); %Neutrophils 79.9 % (42.0-75.0); Hemoglobin 13.3 g/dL (14.0-18.0); Mean Corpuscular HGB CONC 35.5 g/dL (32.0-36.0); Mean Corpuscular Hemoglobin 41.7 pg (27.0-31.0); Mean Platelet Volume 6.8 fL (7.4-10.4); Platelet Count 665 10x3/uL (130-400); RBC Distribution Width 13.6 % (11.5-14.5); Red Blood Cell (RBC) Count 3.19 mill/uL (4.70-6.10)
[2022-03-01 14:58] LABS: ALT (SGPT) 24 U/L (8-55); AST (SGOT) 17 U/L (5-34); Albumin 3.7 g/dL (3.4-4.8); Alkaline Phosphatase 81 U/L (40-110); Anion Gap 14 mmol/L (10-20); BUN (Urea Nitrogen) 12 mg/dL (8.4-25.7); Bilirubin, Total 0.8 mg/dL (0.2-1.2); CK (CPK) 47 U/L (30-200); Calc. Creatinine Clearance 0 mL/min (70-130); Calcium 8.8 mg/dL (7.8-10.44); Carbon Dioxide 24 mmol/L (23-31); Chloride 97 mmol/L (98-107); Estimated GFR 63; Globulin 2.5 g/dL (2.4-3.5); Glucose 110 mg/dL (83-110); Potassium 3.8 mmol/L (3.5-5.1); Protein, Total 6.2 g/dL (5.8-8.1); Sodium 131 mmol/L (136-145)
[2022-03-01 15:30] LABS: Bilirubin Negative (Negative); Blood, Urine Negative (Negative); Clarity Turbid (Clear); Glucose, Urine (Dipstick) Normal (Negative); Ketone, Urine Trace mg/dL (Negative); Leukocyte Negative Leu/uL (Negative); Nitrite Negative (Negative); Protein, Urine (Dipstick) 20 mg/dL (Neg-Trace); Specific Gravity, Urine 1.021 (1.002-1.036); Urobilinogen Normal mg/dL (Less than 2)
== END 2022-03-01 17:23 | disposition home or self-care (01) ==
LOC: ERS 14:02
DX: R41.82 Altered mental status, unspecified (principal); I10 Essential (primary) hypertension; E78.5 Hyperlipidemia, unspecified; Z87.891 Personal history of nicotine dependence
CPT/HCPCS: 36415; 70450; 71045; 80053; 81003; 82550; 83605; 83880; 84484; 85025; 87040; 93005

== ENCOUNTER 2022-03-23 12:34 | Emergency (ER) | payer MEDICARE, BC ==
[2022-03-23 13:46] LABS: #Eosinphils 0.1 thou/uL (0.0-0.7); #Lymphocytes 0.5 thou/uL (1.20-3.40); #Monocytes 0.6 thou/uL (0.11-0.59); #Neutrophils 4.1 thou/uL (1.40-6.50); %Basophils 0.2 % (0.0-1.0); %Eosinophils 1.3 % (0.0-10.0); %Monocytes 10.6 % (0.0-10.0); Hemoglobin 11.9 g/dL (14.0-18.0); Mean Corpuscular HGB CONC 34.8 g/dL (32.0-36.0); Mean Corpuscular Hemoglobin 40.5 pg (27.0-31.0); Mean Platelet Volume 6.7 fL (7.4-10.4); Platelet Count 583 10x3/uL (130-400); RBC Distribution Width 14.3 % (11.5-14.5); Red Blood Cell (RBC) Count 2.94 mill/uL (4.70-6.10); White Blood Cell (WBC) Count 5.2 10x3/uL (4.8-10.8)
[2022-03-23 13:53] LABS: ALT (SGPT) 8 U/L (8-55); AST (SGOT) 11 U/L (5-34); Albumin 3.6 g/dL (3.4-4.8); Alkaline Phosphatase 119 U/L (40-110); Anion Gap 13 mmol/L (10-20); BUN (Urea Nitrogen) 11 mg/dL (8.4-25.7); Bilirubin, Total 0.7 mg/dL (0.2-1.2); Calc. Creatinine Clearance 0 mL/min (70-130); Calcium 8.7 mg/dL (7.8-10.44); Carbon Dioxide 24 mmol/L (23-31); Chloride 94 mmol/L (98-107); Estimated GFR 77; Globulin 2.3 g/dL (2.4-3.5); Glucose 124 mg/dL (83-110); Potassium 4.1 mmol/L (3.5-5.1); Protein, Total 5.9 g/dL (5.8-8.1); Sodium 127 mmol/L (136-145)
== END 2022-03-23 14:42 | disposition home or self-care (01) ==
LOC: ERS 12:34
DX: E87.1 Hypo-osmolality and hyponatremia (principal); I10 Essential (primary) hypertension; E78.5 Hyperlipidemia, unspecified; Z87.891 Personal history of nicotine dependence; Z79.899 Other long term (current) drug therapy; Z79.82 Long term (current) use of aspirin
CPT/HCPCS: 70450; 80053; 85025; 93005

== ENCOUNTER 2022-04-08 12:04 | Outpatient (CLI) | payer MEDICARE, BC | END 2022-04-08 12:05 | disposition home or self-care (01) | LOC: SCSMRI 12:04 | PROVIDERS: ATTEND Psychiatry & Neurology Neurology | DX: R41.82 Altered mental status, unspecified (principal) | CPT/HCPCS: 95816; 95957 ==

== ENCOUNTER 2022-04-23 08:30 | Outpatient (CLI) | payer MEDICARE, BC | END 2022-04-23 08:31 | disposition home or self-care (01) | LOC: CT 08:30 | PROVIDERS: ATTEND Psychiatry & Neurology Neurology | DX: R41.82 Altered mental status, unspecified (principal); I67.82 Cerebral ischemia; Z86.73 Personal history of transient ischemic attack (TIA), and cerebral infarction without residual deficits | CPT/HCPCS: 70470 ==

== ENCOUNTER 2022-04-29 12:23 | Outpatient (CLI) | payer MEDICARE, BC | END 2022-04-29 12:24 | disposition home or self-care (01) | LOC: EEG 12:23 | PROVIDERS: ATTEND Psychiatry & Neurology Neurology | DX: R41.82 Altered mental status, unspecified (principal); G93.40 Encephalopathy, unspecified | CPT/HCPCS: 95816; 95957 ==

== ENCOUNTER 2023-08-12 15:42 | Emergency (ER) | payer MEDICARE, OTHER | END 2023-08-12 20:58 | disposition home or self-care (01) | LOC: ERS 15:42 | DX: S32.011A Stable burst fracture of first lumbar vertebra, initial encounter for closed fracture (principal); E78.5 Hyperlipidemia, unspecified; Z87.891 Personal history of nicotine dependence; Z79.82 Long term (current) use of aspirin; Z79.899 Other long term (current) drug therapy; W19.XXXA Unspecified fall, initial encounter | CPT/HCPCS: 72128; 72131 ==

== ENCOUNTER 2023-08-23 10:57 | Outpatient (CLI) | payer MEDICARE, OTHER | END 2023-08-23 10:58 | disposition home or self-care (01) | LOC: RAD 10:57 | PROVIDERS: ATTEND Physician Assistant | DX: S32.011A Stable burst fracture of first lumbar vertebra, initial encounter for closed fracture (principal) | CPT/HCPCS: 72100 ==

== ENCOUNTER 2023-09-23 12:29 | Outpatient (CLI) | payer MEDICARE, OTHER | END 2023-09-23 12:30 | disposition home or self-care (01) | LOC: RAD 12:29 | PROVIDERS: ATTEND Physician Assistant | DX: S32.011D Stable burst fracture of first lumbar vertebra, subsequent encounter for fracture with routine healing (principal) | CPT/HCPCS: 72100 ==